=== PATIENT | female | born 1995 | race African-American/Black ===

== ENCOUNTER 2021-05-26 21:13 | Emergency (ER) | payer SELFPAY ==
[~2021-05-26] VITALS: Ht 170.2 cm; Wt 54.0 kg
[2021-05-27] MEDS ORDERED: ACETAMINOPHEN 500MG TABLET PO ONE (00:30)
[2021-05-27 01:00] VITALS: BP 132/84
== END 2021-05-27 02:08 | disposition home or self-care (01) ==
LOC: ER 21:13
DX: U07.1 COVID-19 (principal); N93.8 Other specified abnormal uterine and vaginal bleeding; I10 Essential (primary) hypertension; Z98.890 Other specified postprocedural states
CPT/HCPCS: 99282

== ENCOUNTER 2025-05-08 02:45 | Emergency (ER) | payer MEDICAID, OTHER, SELFPAY ==
[~2025-05-08] VITALS: Ht 162.6 cm; Wt 57.0 kg
[2025-05-08 02:49] VITALS: TEMP 98.9; O2SAT 100
[2025-05-08 04:34] LABS: BG DEOXYHEMOGLOBIN 3.7 % (0.0-5.0)
[2025-05-08] MEDS ORDERED: NAPR-1176 MT (04:40)
[2025-05-08 04:43] LABS: BASOPHILS % 0.6 % (0.0-2.0); EOSINOPHILS % 1.1 % (0.0-5.0); HEMATOCRIT. 32.2 % (36.0-48.0); HEMOGLOBIN. 9.9 g/dL (12.0-16.0); LYMPHOCYTES % 16.0 % (20.0-50.0); MEAN PLATELET VOLUME 7.5 fl (7.4-10.4); MONOCYTES % 9.5 % (2.0-8.0); NEUTROPHILS % 72.8 % (40.0-76.0); PLATELET 453 x1000/uL (130-400); RED BLOOD CELL COUNT 4.28 mill/uL (4.2-5.4); RED CELL DISTRIBUTION WIDTH 15.9 % (11.6-14.6)
[2025-05-08 05:04] LABS: HCG SCREEN NEGATIVE
[2025-05-08] MEDS: DIPHENHYDRAMINE 50MG/ML VIAL IV ONE (05:15)
[2025-05-08] MEDS: KETOROLAC 15MG/ML VIAL IV ONE (05:16)
[2025-05-08] MEDS: METOCLOPRAMIDE HCL 10MG/2ML VIAL IV ONE (05:16)
[2025-05-08 06:27] VITALS: BP 94/52; PULSE 92; RESP 12; O2SAT 100
== END 2025-05-08 06:31 | disposition home or self-care (01) ==
LOC: ER 02:45
DX: G43.909 Migraine, unspecified, not intractable, without status migrainosus (principal)
CPT/HCPCS: 84703; 85025; 36415; 82375; 82803; 96374; 96375; 99284; J1200; J1885; J2765; Z7610

== ENCOUNTER 2025-05-08 07:52 | Emergency (ER) | payer MEDICAID ==
[~2025-05-08] VITALS: Ht 167.6 cm; Wt 60.0 kg
[~2025-05-08 07:52] MED LIST: NAPR-1176 MT
[2025-05-08 08:06] VITALS: BP 111/76; TEMP 37.2; O2SAT 99
[2025-05-08 08:08] VITALS: PULSE 85; RESP 18; O2SAT 99
[2025-05-08] MEDS: ACETAMINOPHEN 500MG TABLET PO ONE (09:06)
[2025-05-08] MEDS: ONDANSETRON 4MG ODT PO ONE (09:06)
== END 2025-05-08 09:05 | disposition home or self-care (01) ==
LOC: ER 07:52
DX: R51.9 Headache, unspecified (principal)
CPT/HCPCS: 99283